=== PATIENT | female | born 1990 | race Caucasian/White ===

== ENCOUNTER 2018-06-22 05:48 | Inpatient (IN) ==
[2018-06-22] MEDS ORDERED: ONDANSETRON 4 MG/2 ML VIAL IV PRN (06:17)
[2018-06-22] MEDS ORDERED: MEPERIDINE 50 MG/1 ML VIAL IV PRN (06:17)
[2018-06-22] MEDS ORDERED: BUTORPHANOL 2 MG/ML VIAL IV PRN (06:17)
[2018-06-22] MEDS ORDERED: OXYTOCIN/LR 20 UNIT/1,000 ML BAG IV SCH (06:30)
[2018-06-22] MEDS ORDERED: LACTATED RINGERS 1,000 ML IV SCH ×2 (06:30→10:00)
[2018-06-22 06:40] LABS: Basophils % 0.2 % (0.0-0.8); Eosinophils % 0.4 % (0.00-10.9); Hematocrit 32.9 VOL% (35.7-47.0); Hemoglobin 10.8 GM/DL (12.0-16.0); Immature Granulocytes % 0.8 %; Immature Granulocytes Absolute 0.09 #; Lymphocytes # 2.5 10*3/uL (1.4-4.0); Lymphocytes % 23.2 % (21.3-54.2); Mean Corpuscular HGB Conc 32.8 GM/DL (32-36); Mean Corpuscular Hemoglobin 30 PG (27-34); Mean Corpuscular Volume 92.7 FL (87-102); Mean Platelet Volume 9.9 FL (9.6-12.0); Monocytes % 9.4 % (1.7-12.7); Neutrophils # 7.2 10*3/uL (1.4-7.4); Platelet Count 229 T/CUMM (130-400); Red Blood Count 3.55 MC/CUMM (3.8-5.5); Red Cell Distribution Width 13.8 % (9.3-17.3); White Blood Count 10.9 T/CUMM (4-12)
[2018-06-22 06:49] LABS: INR 0.9; PT Patient Result 9.9 SECS; Partial Thromboplastin Time 24.5 SECS (0-40)
[2018-06-22] MEDS ORDERED: CLINDAMYCIN INJ 900 MG in PREMIX 1 EACH IV SCH (07:00)
[2018-06-22 07:01] LABS: Albumin 2.4 G/DL (3.4-5.0); Bilirubin,Total 0.6 MG/DL (0.2-1.0); Calcium 8.5 MG/DL (8.5-10.1); Osmolality,Calculated 275.5 MOS/KG (273-304); Potassium 3.7 MMOL/L (3.5-5.1)
[2018-06-22] MEDS ORDERED: ALUMINUM/MAGNES/SIMETH MAX STR 30 ML UDCUP PO PRN (08:26)
[2018-06-22] MEDS ORDERED: FAMOTIDINE 20 MG TABLET PO ONE (09:20)
[2018-06-22] MEDS ORDERED: CITRIC ACID/SODIUM CITRATE 30 ML UDCUP PO ONE (09:38)
[2018-06-22] MEDS ORDERED: diphenhydrAMINE 50 MG/1 ML VIAL IV PRN ×2 (09:43)
[2018-06-22] MEDS ORDERED: NALOXONE 0.4 MG/ML VIAL IV PRN (09:43)
[2018-06-22] MEDS ORDERED: ePHEDrine 50 MG/ML AMP IV PRN (09:43)
[2018-06-22] MEDS ORDERED: hydrOXYzine HCL 25 MG/1 ML VIAL IM PRN (09:43)
[2018-06-22] MEDS ORDERED: ONDANSETRON 4 MG/2 ML VIAL IV ONE (09:43)
[2018-06-22] MEDS ORDERED: PROMETHAZINE 25 MG/1 ML VIAL IM ONE (09:43)
[2018-06-22] MEDS ORDERED: LACTATED RINGERS 250 ML IV PRN (09:43)
[2018-06-22] MEDS ORDERED: FAMOTIDINE 20 MG/2 ML VIAL IV ONE (09:50)
[2018-06-22] MEDS ORDERED: fentaNYL 2 MCG/ROPIV 0.2% EPID 100 ML EPIDURAL SCH (10:00)
[2018-06-22 11:19] LABS: Apearance,Urine CLEAR (Clear); Bilirubin,Urine Negative (Negative); Blood, Urine Negative (Negative); Glucose,Urine (UA) Negative (Negative); Ketones,Urine 20 mg/dL (Negative); Nitrite,Urine Negative (Negative); Protein,Urine Negative; RBC,Urine 1 /HPF (0-4); Urine Color Straw (Yellow); Urine Specific Gravity 1.006 (1.001-1.035); Urine Urobilinogen < 2.0 EU/DL (0.2-1.0); WBC,Urine <1 /HPF (0-6)
[2018-06-22 13:34] LABS: Cord Arterial Blood HCO3 18.2 MMOL/L
[2018-06-22] MEDS ORDERED: RHO(D) IMMUNE GLOBULIN 300 MCG SYRINGE IM ONE (17:45)
[2018-06-22] MEDS ORDERED: ACETAMINOPHEN 325 MG TABLET PO PRN (17:45)
[2018-06-22] MEDS ORDERED: DIPH/TET/ACEL PERT BOOSTER VACCINE 0.5 ML VIAL IM ONE (17:45)
[2018-06-22] MEDS ORDERED: HYDROCORTISONE 2.5% RECTAL CREAM 30 GM TUBE TOP PRN (17:45)
[2018-06-22] MEDS ORDERED: BISACODYL 10 MG SUPP RECTAL PRN (17:45)
[2018-06-22] MEDS ORDERED: oxyCODONE/ACETAMINOPHEN 5-325 MG TABLET PO PRN (17:45)
[2018-06-22] MEDS ORDERED: ACETAMINOPHEN/CODEINE 300-30 MG TABLET PO PRN (17:45)
[2018-06-22] MEDS ORDERED: LANOLIN 50% CREAM 0.3 OZ TUBE TOP PRN (17:45)
[2018-06-22] MEDS ORDERED: WITCH HAZEL PADS 100/JAR TOP PRN (17:45)
[2018-06-22] MEDS ORDERED: BENZOCAINE 20%/MENTHOL 0.5% SPRAY 56 GM CAN TOP PRN (17:45)
[2018-06-22] MEDS ORDERED: MEASLES/MUMPS/RUBELLA VACCINE 0.5 ML VIAL SUBCUT ONE (17:45)
[2018-06-22] MEDS: oxyCODONE/ACETAMINOPHEN 5-325 MG TABLET PO PRN (19:24)
[2018-06-22] MEDS: DOCUSATE SODIUM 100 MG CAPSULE PO SCH (20:23)
[2018-06-23] MEDS: oxyCODONE/ACETAMINOPHEN 5-325 MG TABLET PO PRN ×2 (01:57→22:19)
[2018-06-23] MEDS: IBUPROFEN 800 MG TABLET PO PRN ×3 (01:58→22:20)
[2018-06-23 07:11] LABS: Basophils % 0.3 % (0.0-0.8); Eosinophils # 0.1 10*3/uL (0.0-0.87); Eosinophils % 0.7 % (0.00-10.9); Hematocrit 28.3 VOL% (35.7-47.0); Hemoglobin 9.1 GM/DL (12.0-16.0); Immature Granulocytes % 0.6 %; Immature Granulocytes Absolute 0.08 #; Lymphocytes # 2.9 10*3/uL (1.4-4.0); Lymphocytes % 23.3 % (21.3-54.2); Mean Corpuscular HGB Conc 32.2 GM/DL (32-36); Mean Corpuscular Hemoglobin 30 PG (27-34); Monocytes # 1.2 10*3/uL (0.11-0.8); Monocytes % 9.9 % (1.7-12.7); Neutrophils # 8.1 10*3/uL (1.4-7.4); Neutrophils % 65.2 % (38.7-73.9); Platelet Count 209 T/CUMM (130-400); Red Blood Count 3.01 MC/CUMM (3.8-5.5); White Blood Count 12.4 T/CUMM (4-12)
[2018-06-23] MEDS: FERROUS SULFATE 325 MG TABLET PO SCH ×2 (10:29→22:19)
[2018-06-23] MEDS: DOCUSATE SODIUM 100 MG CAPSULE PO SCH ×2 (10:29→22:15)
[2018-06-24] MEDS: IBUPROFEN 800 MG TABLET PO PRN (05:25)
[2018-06-24] MEDS: oxyCODONE/ACETAMINOPHEN 5-325 MG TABLET PO PRN (05:26)
[2018-06-24 07:31] VITALS: BP 113/61
[2018-06-24] MEDS: DOCUSATE SODIUM 100 MG CAPSULE PO SCH (10:01)
[2018-06-24] MEDS: FERROUS SULFATE 325 MG TABLET PO SCH (10:01)
[2018-06-24] MEDS ORDERED: INFLUENZA VIRUS VACCINE 0.5 ML SYRINGE IM ONE (12:08)
== END 2018-06-24 13:30 | disposition home or self-care (01) | DRG 775 ==
LOC: N.LDOUT 05:48 → N.LD 05:50 → N.OB 16:15
PROVIDERS: ADMIT Obstetrics & Gynecology; ATTEND Obstetrics & Gynecology